=== PATIENT | male | born 1955 | race Caucasian/White ===

== ENCOUNTER 2023-10-17 00:34 | Emergency (ER) | payer MEDICARE, OTHER ==
[~2023-10-17] VITALS: Ht 167.6 cm; Wt 85.3 kg
[2023-10-17] MEDS ORDERED: SITA50TA PO (00:43)
[2023-10-17] MEDS ORDERED: LEVO150T PO (00:43)
[2023-10-17] MEDS ORDERED: ASPI81TA31 PO (00:43)
[2023-10-17] MEDS ORDERED: [UNRECOGNIZED DRUG - REMARK] PO (00:43)
[2023-10-17] MEDS ORDERED: MORPHINE SULFATE 2 MG/1 ML DISP.SYRIN IV ONE (01:15)
[2023-10-17] MEDS: IV NORMAL SALINE 500 ML BAG IV ONE (01:25)
[2023-10-17] MEDS: FAMOTIDINE. 20 MG/2 ML VIAL IV ONE (01:40)
[2023-10-17 01:42] LABS: BASOPHILS # (AUTO) 0.1 K/UL (0.0-0.2); BASOPHILS % (AUTO) 0.9 % (0.0-2.0); EOSINOPHILS # (AUTO) 0.1 K/uL (0.0-0.7); EOSINOPHILS % (AUTO) 1.2 % (0.0-7.0); HEMATOCRIT 51.5 % (36.7-47.1); HEMOGLOBIN 17.5 g/dL (12.5-16.3); LYMPHOCYTES # (AUTO) 2.8 K/uL (0.8-4.8); MEAN CORPUSCULAR HEMOGLOBIN 30.3 uug (23.8-33.4); MEAN CORPUSCULAR HGB CONC 34 g/dL (32.5-36.3); MEAN CORPUSCULAR VOLUME 88.9 fL (73.0-96.2); MONOCYTES # (AUTO) 0.8 K/uL (0.1-1.30); MONOCYTES % (AUTO) 8.4 % (0.0-11.0); NEUTROPHILS # (AUTO) 5.3 K/uL (1.8-8.9); NEUTROPHILS % (AUTO) 58.5 % (38.5-71.5); PLATELET COUNT (AUTO) 224 K/uL (152-348); RED BLOOD CELL COUNT(AUTO) 5.79 MIL/uL (4.06-5.63); RED CELL DISTRIBUTION WIDTH 13.6 % (12.1-16.2)
[2023-10-17 01:43] LABS: CARBON DIOXIDE 27 mmol/L (21-32); CHLORIDE 98 mmol/L (98-107); CREATININE 0.8 mg/dL (0.6-1.3); GLUCOSE 170 mg/dL (74-106); POTASSIUM 4.2 mmol/L (3.5-5.1); SODIUM SERUM 137 mmol/L (136-145); UREA NITROGEN, BLOOD 10 mg/dL (7-18)
[2023-10-17 01:44] LABS: DIFFERENTIAL COMMENT 1
[2023-10-17] MEDS ORDERED: FAMOTIDINE. 20 MG/2 ML VIAL IV ONE (01:44)
[2023-10-17 01:52] LABS: ALANINE AMINOTRANSFERASE 39 U/L (16-63); ALBUMIN 4.2 g/dL (3.4-5.0); ALKALINE PHOSPHATASE 59 U/L (50-136); ASPARTATE AMINOTRANSFERASE 9 U/L (15-37); BILIRUBIN,DIRECT 0.1 mg/dL (0.0-0.2); BILIRUBIN,TOTAL 0.6 mg/dL (0.2-1.0); LIPASE 30 U/L (16-77); TOTAL PROTEIN, SERUM 8.2 g/dL (6.4-8.2)
[2023-10-17 02:28] LABS: *BILIRUBIN,URIN NEGATIVE (NEGATIVE); *BLOOD, URINE NEGATIVE (NEGATIVE); *CLARITY,URINE CLEAR (CLEAR); *COLOR,URINE YELLOW (YELLOW); *KETONES,URINE 2+ (NEGATIVE); *PROTEIN,URINE NEGATIVE (NEGATIVE); *UROBILINOGEN,URINE 0.2 E.U./dl (NORMAL); LEUKOCYTE ESTERASE ,URINE NEGATIVE (NEGATIVE); NITRITE, URINE NEGATIVE (NEGATIVE); UGLUCOSE TRACE (NEGATIVE)
[2023-10-17] MEDS ORDERED: SENN-291 PO (05:27)
[2023-10-17 05:54] VITALS: BP 159/92; TEMP 98.7; O2SAT 95
== END 2023-10-17 05:50 | disposition home or self-care (01) ==
LOC: ER 00:40
DX: K59.00 Constipation, unspecified (principal); R03.0 Elevated blood-pressure reading, without diagnosis of hypertension; R10.13 Epigastric pain; E03.9 Hypothyroidism, unspecified; Z79.899 Other long term (current) drug therapy
CPT/HCPCS: 99285; 74176; 96374; 80076; 80048; 81003; 83690; 84443; 85025; 84484; 36415; 93005; 83605; J3490; J7040; A4606; A4663

== ENCOUNTER 2024-07-12 01:02 | Emergency (ER) | payer MEDICARE, OTHER ==
[~2024-07-12] VITALS: Ht 172.7 cm; Wt 86.2 kg
[~2024-07-12 01:02] MED LIST: ASPI81TA31 PO; LEVO150T PO; SENN-291 PO; SITA50TA PO; [UNRECOGNIZED DRUG - REMARK] PO
[2024-07-12] MEDS ORDERED: KETOROLAC TROMETHAMINE 30 MG INJ IVP ONE (01:45)
[2024-07-12] MEDS: IV NS 1000 ML 1,000 ML IV ONE (01:46)
[2024-07-12] MEDS ORDERED: MORPHINE SULFATE 2 MG/1 ML DISP.SYRIN ONE ×2 (01:48→06:06)
[2024-07-12] MEDS ORDERED: ONDANSETRON 4 MG/2 ML VIAL ONE ×2 (01:48→06:06)
[2024-07-12 01:54] LABS: BASOPHILS # (AUTO) 0.1 K/UL (0.0-0.2); BASOPHILS % (AUTO) 0.6 % (0.0-2.0); EOSINOPHILS # (AUTO) 0.1 K/uL (0.0-0.7); EOSINOPHILS % (AUTO) 1.4 % (0.0-7.0); HEMATOCRIT 53.2 % (36.7-47.1); HEMOGLOBIN 17.6 g/dL (12.5-16.3); LYMPHOCYTES # (AUTO) 3.1 K/uL (0.8-4.8); LYMPHOCYTES % (AUTO) 30.7 % (20.5-51.5); MEAN CORPUSCULAR HEMOGLOBIN 29.5 uug (23.8-33.4); MEAN CORPUSCULAR HGB CONC 33 g/dL (32.5-36.3); MEAN CORPUSCULAR VOLUME 89.1 fL (73.0-96.2); MONOCYTES # (AUTO) 0.8 K/uL (0.1-1.30); MONOCYTES % (AUTO) 7.6 % (0.0-11.0); NEUTROPHILS % (AUTO) 59.7 % (38.5-71.5); PLATELET COUNT (AUTO) 235 K/uL (152-348); RED BLOOD CELL COUNT(AUTO) 5.96 MIL/uL (4.06-5.63); RED CELL DISTRIBUTION WIDTH 13.7 % (12.1-16.2)
[2024-07-12] MEDS: ONDANSETRON 4 MG/2 ML VIAL IV ONE ×2 (01:59→06:16)
[2024-07-12 02:02] LABS: CALCIUM 8.2 mg/dL (8.5-10.1); CARBON DIOXIDE 26 mmol/L (21-32); CHLORIDE 101 mmol/L (98-107); CREATININE 0.8 mg/dL (0.6-1.3); GLUCOSE 192 mg/dL (74-106); POTASSIUM 4.1 mmol/L (3.5-5.1); SODIUM SERUM 140 mmol/L (136-145); UREA NITROGEN, BLOOD 16 mg/dL (7-18)
[2024-07-12 02:03] LABS: DIFFERENTIAL COMMENT 1
[2024-07-12] MEDS: MORPHINE SULFATE 2 MG/1 ML DISP.SYRIN IV ONE ×2 (02:03→06:00)
[2024-07-12 02:13] LABS: ALANINE AMINOTRANSFERASE 35 U/L (16-63); ALBUMIN 4.2 g/dL (3.4-5.0); ALKALINE PHOSPHATASE 53 U/L (50-136); ASPARTATE AMINOTRANSFERASE 15 U/L (15-37); BILIRUBIN,TOTAL 0.6 mg/dL (0.2-1.0); LIPASE 39 U/L (16-77); TOTAL PROTEIN, SERUM 7.7 g/dL (6.4-8.2)
[2024-07-12 02:25] LABS: ETHANOL < 3 MG/DL (0-10)
[2024-07-12] MEDS ORDERED: OMEP20TA20 PO (03:51)
[2024-07-12] MEDS: PANTOPRAZOLE SODIUM IV 40 MG in IV DEXTROSE 5% 100 ML IV ONE (04:00)
[2024-07-12] MEDS ORDERED: PANTOPRAZOLE SODIUM 40 MG VIAL ONE ×2 (04:16→05:40)
[2024-07-12] MEDS: PANTOPRAZOLE SODIUM 40 MG VIAL IV ONE (05:30)
[2024-07-12 05:50] LABS: *BILIRUBIN,URIN NEGATIVE (NEGATIVE); *BLOOD, URINE NEGATIVE (NEGATIVE); *CLARITY,URINE CLEAR (CLEAR); *COLOR,URINE YELLOW (YELLOW); *KETONES,URINE 4+ (NEGATIVE); *PROTEIN,URINE NEGATIVE (NEGATIVE); *UROBILINOGEN,URINE 0.2 E.U./dl (NORMAL); LEUKOCYTE ESTERASE ,URINE NEGATIVE (NEGATIVE); NITRITE, URINE NEGATIVE (NEGATIVE); PH,URINE 5.5 (5.0-8.0); UGLUCOSE 3+ (NEGATIVE)
[2024-07-12 05:58] LABS: *AMPHETAMINE, URINE NEGATIVE (NEGATIVE); *BARBITURATE, URINE NEGATIVE (NEGATIVE); *BENZODIAZEPINE, URINE NEGATIVE (NEGATIVE); *CANNABINOID, URINE POSITIVE (NEGATIVE); *COCCAINE, URINE NEGATIVE (NEGATIVE); *OPIATE, URINE POSITIVE (NEGATIVE); *PHENCYCLIDINE SCREEN,URINE NEGATIVE (NEGATIVE); FENTANYL, URINE NEGATIVE (NEGATIVE)
[2024-07-12] MEDS ORDERED: HYDR-3980 PO (08:16)
[2024-07-12] MEDS ORDERED: TETR-57 PO (08:16)
[2024-07-12] MEDS ORDERED: METR500T PO (08:16)
[2024-07-12] MEDS ORDERED: PROC10TA29 PO (08:16)
[2024-07-12] MEDS ORDERED: BISM262T18 PO (08:16)
[2024-07-12] MEDS ORDERED: OMEP40CA21 PO (08:16)
[2024-07-12 08:39] VITALS: BP 139/77; O2SAT 95
== END 2024-07-12 08:41 | disposition home or self-care (01) ==
LOC: ER 01:17
DX: K29.00 Acute gastritis without bleeding (principal); R07.9 Chest pain, unspecified; E03.9 Hypothyroidism, unspecified; E11.9 Type 2 diabetes mellitus without complications; Z79.82 Long term (current) use of aspirin; Z79.84 Long term (current) use of oral hypoglycemic drugs; Z79.890 Hormone replacement therapy; Z79.899 Other long term (current) drug therapy; Z87.19 Personal history of other diseases of the digestive system
CPT/HCPCS: 80053; 81003; 83690; 85025; 84484; 36415; 71045; 74176; 93005; 99285; 96361; 96365; 96375; 96376; 80320; 80307; J2405 ×2; J2470 ×3; J2270 ×2; J7040; A4606; A4663; G0480